=== PATIENT | female | born 1995 | race Caucasian/White ===

== ENCOUNTER 2020-01-17 06:17 | Emergency (ER) | payer OTHER ==
[~2020-01-17] VITALS: Ht 157.5 cm; Wt 103.4 kg
[2020-01-17 06:22] VITALS: Ht 157.5 cm; Wt 103.4 kg
[2020-01-17 07:32] LABS: BASOPHIL % 0.6 % (0-2); PLATELET COUNT 376 x10^3mcL (130-400); RED CELL DISTRIBUTION WIDTH 12.8 % (11.5-14.5)
[2020-01-17 07:52] LABS: CALCIUM 9.2 mg/dL (8.5-10.1); CARBON DIOXIDE 25.6 mmol/L (21-32); CHLORIDE SERUM 105 mmol/L (98-107); CREATININE SERUM 0.8 mg/dL (0.6-1.0); GFR1 > 60 mL/min; GLUCOSE SERUM 101 mg/dL (74-106); POTASSIUM SERUM 4.4 mmol/L (3.5-5.1); SODIUM SERUM 138 mmol/L (136-145)
[2020-01-17 07:56] LABS: ALBUMIN 3.7 g/dL (3.4-5.0); ALKALINE PHOSPHATASE 97 U/L (46-116); ALT/SGPT 52 U/L (14-59); AST/SGOT 23 U/L (15-37); BILIRUBIN TOTAL 0.3 mg/dL (0.20-1.00); LIPASE 114 IU/L (73-393); TOTAL PROTEIN, SERUM 7.4 g/dL (6.4-8.2)
[2020-01-17 08:45] VITALS: BP 108/67
== END 2020-01-17 08:45 | disposition home or self-care (01) ==
LOC: ED 06:17
PROVIDERS: Emergency Medicine
DX: K52.9 Noninfective gastroenteritis and colitis, unspecified (principal)
CPT/HCPCS: J7030

== ENCOUNTER 2020-05-13 08:07 | Emergency (ER) | payer OTHER, SELFPAY ==
[~2020-05-13] VITALS: Ht 162.6 cm; Wt 103.0 kg
[2020-05-13 08:09] VITALS: BP 125/96; Ht 162.6 cm; Wt 103.0 kg
== END 2020-05-13 09:34 | disposition home or self-care (01) ==
LOC: ED 08:07
DX: R10.9 Unspecified abdominal pain (principal); R11.0 Nausea; R68.83 Chills (without fever); Z20.828 Contact with and (suspected) exposure to other viral communicable diseases
CPT/HCPCS: Q0162; U0003-CS

== ENCOUNTER 2020-08-12 16:45 | Emergency (ER) | payer OTHER, SELFPAY ==
[~2020-08-12] VITALS: Ht 162.6 cm; Wt 72.6 kg
[2020-08-12 16:47] VITALS: BP 140/97; Ht 162.6 cm; Wt 72.6 kg
== END 2020-08-12 17:58 | disposition home or self-care (01) ==
LOC: ED 16:45
DX: B34.9 Viral infection, unspecified (principal); Z20.828 Contact with and (suspected) exposure to other viral communicable diseases
CPT/HCPCS: U0003